=== PATIENT | male | born 1985 | race African-American/Black ===

== ENCOUNTER 2022-01-25 18:06 | Inpatient (IN) | payer SELFPAY ==
[2022-01-25] MEDS ORDERED: Acetaminophen 650 MG Suppository PR PRN (19:24)
[2022-01-25] MEDS ORDERED: Guaifenesin DM 100-10/5 ML UDCUP PO PRN (19:24)
[2022-01-25] MEDS ORDERED: Ondansetron ODT 4 MG TAB PO PRN (19:24)
[2022-01-25] MEDS ORDERED: Bisacodyl 5 MG TAB PO PRN (19:24)
[2022-01-25] MEDS ORDERED: Bisacodyl 10 MG SUPP PR PRN (19:24)
[2022-01-25] MEDS ORDERED: Ondansetron PF 4 MG/2 ML Vial IVP PRN (19:24)
[2022-01-25] MEDS ORDERED: Senokot S 8.6-50 MG TAB PO PRN (19:24)
[2022-01-25] MEDS ORDERED: Acetaminophen 325 MG TAB PO PRN (19:24)
[2022-01-25] MEDS ORDERED: Lorazepam 2 MG/ML VIAL SLOW IVP PRN (19:30)
[2022-01-25 20:53] VITALS: BMI 32.0
[2022-01-25] MEDS ORDERED: Midazolam HCl 2 mg/2 ml Vial SLOW IVP PRN (21:55)
[2022-01-25] MEDS: Sodium Chloride 0.9% 1,000 ML IV SCH (22:00)
[2022-01-25] MEDS ORDERED: Potassium Phosphate 15 MMOL in Sodium Chloride 0.9% 250 ML 250 ML IVPB SCH (22:00)
[2022-01-25] MEDS: Famotidine 20 MG TAB PO SCH (22:13)
[2022-01-25] MEDS: Famotidine/PF 20 mg/2ml Vial SLOW IVP SCH (22:13)
[2022-01-26] MEDS: Sodium Chloride 0.9% 1,000 ML IV SCH ×4 (03:12→23:35)
[2022-01-26 05:34] LABS: #Eosinphils 0.2 thou/uL (0.0-0.7); #Lymphocytes 2.3 thou/uL (1.20-3.40); #Monocytes 1.2 thou/uL (0.11-0.59); #Neutrophils 7.2 thou/uL (1.40-6.50); %Basophils 0.4 % (0.0-1.0); %Eosinophils 2.1 % (0.0-10.0); %Lymphocytes 21.1 % (21.0-51.0); %Monocytes 10.7 % (0.0-10.0); %Neutrophils 65.7 % (42.0-75.0); Hemoglobin 11.3 g/dL (14.0-18.0); Mean Corpuscular HGB CONC 31.9 g/dL (32.0-36.0); Mean Corpuscular Hemoglobin 31.9 pg (27.0-31.0); Mean Platelet Volume 9.2 fL (7.4-10.4); Platelet Count 189 thou/uL (130-400); RBC Distribution Width 11.7 % (11.5-14.5); Red Blood Cell (RBC) Count 3.54 mill/uL (4.70-6.10); White Blood Cell (WBC) Count 10.9 thou/uL (4.8-10.8)
[2022-01-26 05:50] LABS: ALT (SGPT) 30 U/L (8-55); AST (SGOT) 40 U/L (5-34); Albumin 3.3 g/dL (3.5-5.0); Alkaline Phosphatase 60 U/L (40-110); Anion Gap 13 mmol/L (10-20); BUN (Urea Nitrogen) 15 mg/dL (8.9-20.6); Bilirubin, Total 1.2 mg/dL (0.2-1.2); CK (CPK) 1114 U/L (30-200); Calc. Creatinine Clearance 167 mL/min (70-130); Calcium 8.1 mg/dL (7.8-10.44); Carbon Dioxide 26 mmol/L (22-29); Chloride 105 mmol/L (98-107); Estimated GFR 118; Globulin 2.9 g/dL (2.4-3.5); Glucose 84 mg/dL (70-105); Magnesium 1.8 mg/dL (1.6-2.6); Phosphorus 3.2 mg/dL (2.3-4.7); Potassium 3.1 mmol/L (3.5-5.1); Protein, Total 6.2 g/dL (6.0-8.3); Sodium 141 mmol/L (136-145)
[2022-01-26] MEDS: Enoxaparin Sodium 40 MG/0.4 ML SYRINGE SC SCH (09:42)
[2022-01-26] MEDS: Multivit, Therapeutic 1 TAB PO SCH (09:43)
[2022-01-26] MEDS: Folic Acid 1 MG TAB PO SCH (09:43)
[2022-01-26] MEDS: Famotidine 20 MG TAB PO SCH ×2 (09:43→21:17)
[2022-01-26] MEDS: Thiamine 100 MG TAB PO SCH (09:43)
[2022-01-26] MEDS: Famotidine/PF 20 mg/2ml Vial SLOW IVP SCH ×2 (09:52→21:17)
[2022-01-26] MEDS ORDERED: guanFACINE HCl 1 MG TAB PO SCH (21:00)
[2022-01-26] MEDS ORDERED: GUANFACINE HCL 1 MG PO SCH (21:00)
[2022-01-27] MEDS: Sodium Chloride 0.9% 1,000 ML IV SCH ×2 (06:33→16:37)
[2022-01-27] MEDS ORDERED: FLUoxetine HCl 20 MG CAP PO SCH (09:00)
[2022-01-27] MEDS ORDERED: risperiDONE 0.25 MG TAB PO SCH (09:00)
[2022-01-27 09:44] LABS: Anion Gap 11 mmol/L (10-20); BUN (Urea Nitrogen) 10 mg/dL (8.9-20.6); Calc. Creatinine Clearance 146 mL/min (70-130); Calcium 8.3 mg/dL (7.8-10.44); Carbon Dioxide 29 mmol/L (22-29); Chloride 106 mmol/L (98-107); Estimated GFR 111; Glucose 94 mg/dL (70-105); Potassium 3.8 mmol/L (3.5-5.1); Sodium 142 mmol/L (136-145)
[2022-01-27] MEDS: Enoxaparin Sodium 40 MG/0.4 ML SYRINGE SC SCH (10:30)
[2022-01-27] MEDS: Famotidine/PF 20 mg/2ml Vial SLOW IVP SCH (10:31)
[2022-01-27] MEDS: Folic Acid 1 MG TAB PO SCH (10:31)
[2022-01-27] MEDS: Thiamine 100 MG TAB PO SCH (10:32)
[2022-01-27] MEDS: Multivit, Therapeutic 1 TAB PO SCH (10:32)
[2022-01-27] MEDS: Famotidine 20 MG TAB PO SCH (10:37)
[2022-01-27 12:19] VITALS: TEMP 97.9
[2022-01-27 16:52] VITALS: BP 108/66
== END 2022-01-27 16:50 | disposition home or self-care (01) | DRG 896 ==
LOC: 2NO 18:25
PROVIDERS: ADMIT Hospitalist; ATTEND Hospitalist
DX: F14.10 Cocaine abuse, uncomplicated (principal); G93.41 Metabolic encephalopathy; M62.82 Rhabdomyolysis; F17.210 Nicotine dependence, cigarettes, uncomplicated; E83.39 Other disorders of phosphorus metabolism; E87.6 Hypokalemia; E86.0 Dehydration; Z79.899 Other long term (current) drug therapy; F15.10 Other stimulant abuse, uncomplicated
CPT/HCPCS: 36415; 80048; 80053; 82550; 83735; 84100; 85025; J1650; J7050; S0028; U0003; U0005